=== PATIENT | male | born 1950 | race Caucasian/White ===

== ENCOUNTER 2025-08-11 23:00 | Observation (INO) | payer MEDICARE ==
--- NOTE | 2025-08-11 23:12 | ERPHSYRPT ---
- History of Present Illness Time Seen by Provider: 08/11/25 23:11 Source: patient, family Exam Limitations: clinical condition Physician History: This is a 75-year-old white male patient arrives by private vehicle accompanied by spouse and is a patient of Dr. Ruvalcaba. In the last couple of days this diabetic patient with hypertension has not been eating or drinking well per the patient's spouse report. His symptoms of mild confusion have worsened and today, the spouse stated that she could not control his confusion. There is been no new medications. Patient denies shortness of breath and he denies chest pain. He has never been in our emergency department before. Patient had been complaining of headaches and bodyaches over the last couple of days. He does see bit gatherer Dr. Gunderson. He arrives to the emergency department mildly pale and diaphoretic. Patient underwent viral swabs this morning and they were negative. 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 Associated Symptoms: confusion, diaphoresis, headache, muscle aches, weakness, No shortness of breath Allergies/Adverse Reactions: No Known Drug Allergies Allergy (Verified 08/11/25 23:06) Home Medications: Carvedilol 3.125 mg [Coreg 3.125 MG] 3.125 mg PO BID 08/11/25 [History] Insulin Degludec [Tresiba Flextouch U-100] 10 unit SQ HS 08/11/25 [History] Insulin Lispro [Insulin Lispro Kwikpen U-100] 5 unit SQ TID 08/11/25 [History] Lisinopril 5 mg [Zestril 5 MG] 2.5 mg PO DAILY 08/11/25 [History] Metformin HCl 500 mg [Glucophage 500 MG] 1,000 mg PO BID 08/11/25 [History] ondansetron HCL [Ondansetron HCl] 8 mg PO BID PRN 08/11/25 [History] Travel Risk - International Travel Have you traveled outside of the country in past 3 weeks: No - Emerging Infectious Disease Are you exhibiting symptoms associated with any current EIDs: No Symptoms: Fever, Headaches/Body Aches/ - Review of Systems Constitutional: Fever (At home), Weakness Eyes: No Symptoms Ears, Nose, & Throat: No Symptoms Respiratory: No Symptoms Cardiac: No Symptoms Abdominal/Gastrointestinal: Vomiting, Appetite Changes Genitourinary Symptoms: No Symptoms Musculoskeletal: No Symptoms Neurological: Headache Psychological: No Symptoms Endocrine: No Symptoms Hematologic/Lymphatic: No Symptoms Immunological/Allergic: No Symptoms All Other Systems: Reviewed and Negative - Past Medical History Pertinent Past Medical History: Yes - Nursing Vital Signs Nursing Vital Signs: Initial Vital Signs Pulse Rate 69 08/11/25 23:05 Respiratory Rate 20 08/11/25 23:05 Blood Pressure 170/92 08/11/25 23:05 O2 Sat by Pulse Oximetry 96 08/11/25 23:05 Pain Scale Pain Intensity 0 - Physical Exam General Appearance: mild distress, alert, anxiety, thin Eye Exam: PERRL/EOMI, eyes nml inspection ENT Exam: normal ENT inspection Neck Exam: normal inspection, non-tender, supple, full range of motion, trachea midline Respiratory Exam: normal breath sounds, chest non-tender, lungs clear, no respiratory distress, no accessory muscle use, decreased breath sounds, respiratory distress Cardiovascular/Chest Exam: normal heart sounds, regular rate/rhythm Gastrointestinal/Abdominal Exam: soft, non tender, no distention, no mass, no guarding, no ecchymosis, no organomegaly, no pulsatile mass, normal bowel sounds Rectal Exam: not done Extremity Exam: non-tender, normal range of motion, normal inspection, normal capillary refill, no calf tenderness, no pedal edema, pelvis stable, calf tenderness Neurologic Exam: cooperative, cancer genetic counselor II-XII nml as tested, confusion Skin Exam: diaphoresis, pale Lymphatic: No adenopathy SpO2 Interpretation: normal O2 Delivery: Room Air - Course Nursing assessment & vital signs reviewed: Yes EKG Interpreted by Me: RATE (75), Sinus Rhythm, NORMAL AXIS, NORMAL INTERVALS, Right Bundle Branch Block, Other (QTc 447. No acute ischemia.) Ordered Tests: Active Orders 24 hr Category Date Time Status Telephone Exchange Operator STAT Care 08/11/25 23:28 Active EKG-ER Only STAT Care 08/11/25 23:27 Active IV Insertion STAT Care 08/11/25 23:27 Active NPO (ED) STAT Care 08/11/25 23:32 Active POCT Glucose Check STAT Care 08/11/25 23:32 Active Pulse Oximetry (ED) STAT Care 08/11/25 23:27 Active BLOOD CULTURE Stat Lab 08/11/25 23:52 Received CBC W DIFF Stat Lab 08/11/25 23:34 Completed CMP Stat Lab 08/11/25 23:36 Completed Lactic Acid Stat Lab 08/11/25 23:27 Completed MAGNESIUM Stat Lab 08/11/25 23:36 Completed MONO SCREEN Stat Lab 08/11/25 23:34 Completed NT PRO BNPII Stat Lab 08/11/25 23:34 Completed TROPONIN Q4H Lab 08/11/25 23:34 Completed TROPONIN Q4H Lab 08/12/25 03:30 Ordered TROPONIN Q4H Lab 08/12/25 07:30 Ordered UA W/RFX UR CULTURE Stat Lab 08/12/25 00:54 Completed Medication Summary Generic Name Dose Route Start Last Admin Trade Name Freq PRN Reason Stop Dose Admin Sodium Chloride 1,000 mls @ 999 mls/hr 08/12/25 01:27 08/12/25 01:30 Sodium Chloride 0.9% 1000 Ml IV 08/12/25 02:27 999 mls/hr .Q1H1M STA Administration Discontinued Medications Generic Name Dose Route Start Last Admin Trade Name Freq PRN Reason Stop Dose Admin Droperidol 0.625 mg 08/12/25 00:46 08/12/25 00:52 Droperidol 5 Mg/2 Ml Vial IV 08/12/25 00:47 0.625 mg STAT ONE Administration Droperidol Confirm 08/12/25 00:48 Droperidol 5 Mg/2 Ml Vial Administered 08/12/25 00:49 Dose 5 mg .ROUTE .STK-MED ONE Sodium Chloride 1,000 mls @ 999 mls/hr 08/11/25 23:27 08/12/25 00:52 Sodium Chloride 0.9% 1000 Ml IV 08/12/25 00:27 Infused .Q1H1M STA Infusion Sodium Chloride Confirm 08/11/25 23:50 Sodium Chloride 0.9% 1000 Ml Administered 08/11/25 23:51 Dose 1,000 mls @ ud .ROUTE .STK-MED ONE Sodium Chloride Confirm 08/12/25 01:29 Sodium Chloride 0.9% 1000 Ml Administered 08/12/25 01:30 Dose 1,000 mls @ ud .ROUTE .STK-MED ONE Ondansetron HCl 4 mg 08/11/25 23:27 08/11/25 23:52 Ondansetron Hcl 4 Mg/2 Ml Vial IV 08/11/25 23:28 4 mg STAT ONE Administration Ondansetron HCl Confirm 08/11/25 23:50 Ondansetron Hcl 4 Mg/2 Ml Vial Administered 08/11/25 23:51 Dose 4 mg .ROUTE .STK-MED ONE Pantoprazole Sodium 40 mg 08/12/25 00:45 08/12/25 00:52 Pantoprazole 40 Mg Vial IV 08/12/25 00:46 40 mg STAT ONE Administration Pantoprazole Sodium Confirm 08/12/25 00:48 Pantoprazole 40 Mg Vial Administered 08/12/25 00:49 Dose 40 mg IV .STK-MED ONE Lab/Rad Data: Laboratory Result Diagrams 08/11/25 23:34 08/11/25 23:36 Laboratory Results 08/12/25 08/12/25 08/11/25 Range/Units 00:54 00:04 23:52 WBC (4.23-9.07) x10^3/uL RBC (4.63-6.08) x10^6/uL Hgb (13.7-17.5) g/dL Hct (40.1-51.0) % MCV (79.0-92.2) fL MCH (25.7-32.2) pg MCHC (32.3-36.5) g/dL RDW (11.6-14.4) % Plt Count (163-337) x10^3/uL MPV (9.4-12.4) fL Gran % (34.0-67.9) % Immature Gran % (Auto) (0.001-0.429) % Nucleat RBC Rel Count (0.00-0.2) % Eos # (Auto) (0.04-0.54) x10^3/uL Immature Gran # (Auto) (0.001-0.031) x10^3u/L Absolute Lymphs (auto) (1.32-3.57) x10^3/uL Absolute Monos (auto) (0.30-0.82) x10^3/uL Absolute Nucleated RBC (0.00-0.012) x10^3u/L Lymphocytes % (21.8-53.1) % Monocytes % (5.3-12.2) % Eosinophils % (0.8-7.0) % Basophils % (0.2-1.2) % Absolute Granulocytes (1.78-5.38) x10^3/uL Basophils # (0.01-0.08) x10^3/uL Sodium (135-145) mmol/L Potassium (3.5-5.1) mmol/L Chloride (98-107) mmol/L Carbon Dioxide (22-30) mmol/L Anion Gap (5-15) MEQ/L BUN (9-20) mg/dL Creatinine (0.66-1.25) mg/dL Estimated GFR ML/MIN Glucose (74-106) mg/dL Lactic Acid 2.6 H (0.4-2.0) Calcium (8.4-10.2) mg/dL Magnesium (1.6-2.3) mg/dL Total Bilirubin (0.2-1.3) mg/dL AST (17-59) U/L ALT (0-50) U/L Alkaline Phosphatase (38-126) U/L Ammonia < 9 L (9-30) umol/L Troponin I (0.000-0.033) ng/mL NT-Pro-B Natriuret Pep (<300) pg/mL Serum Total Protein (6.3-8.2) g/dL Albumin (3.5-5.0) g/dL Urine Color Yellow (Yellow) Urine Appearance Clear (Clear) Urine pH 6.0 (4.6-8.0) Ur Specific [place] 1.025 (1.005-1.030) Urine Protein Trace A (Negative) Urine Glucose (UA) Negative (Negative) mg/dL Urine Ketones 15 A (Negative) Urine Blood Negative (Negative) Urine Nitrite Negative (Negative) Urine Bilirubin Negative (Negative) Urine Urobilinogen 1.0 A (0.2) mg/dL Ur Leukocyte Esterase Negative (Negative) U Hyaline Cast (Auto) NONE SEEN (0-2) /LPF Urine Microscopic RBC 0-2 (0-5) /HPF Urine Microscopic WBC 0-2 (0-5) /HPF Ur Epithelial Cells None Seen (None Seen) /HPF Urine Bacteria None Seen (None Seen) /HPF Urine Culture Reflexed NO (NO) Monoscreen (NEGATIVE) Group A Strep Antibody (NEGATIVE) 08/11/25 08/11/25 08/11/25 Range/Units 23:52 23:36 23:34 WBC (4.23-9.07) x10^3/uL RBC (4.63-6.08) x10^6/uL Hgb (13.7-17.5) g/dL Hct (40.1-51.0) % MCV (79.0-92.2) fL MCH (25.7-32.2) pg MCHC (32.3-36.5) g/dL RDW (11.6-14.4) % Plt Count (163-337) x10^3/uL MPV (9.4-12.4) fL Gran % (34.0-67.9) % Immature Gran % (Auto) (0.001-0.429) % Nucleat RBC Rel Count (0.00-0.2) % Eos # (Auto) (0.04-0.54) x10^3/uL Immature Gran # (Auto) (0.001-0.031) x10^3u/L Absolute Lymphs (auto) (1.32-3.57) x10^3/uL Absolute Monos (auto) (0.30-0.82) x10^3/uL Absolute Nucleated RBC (0.00-0.012) x10^3u/L Lymphocytes % (21.8-53.1) % Monocytes % (5.3-12.2) % Eosinophils % (0.8-7.0) % Basophils % (0.2-1.2) % Absolute Granulocytes (1.78-5.38) x10^3/uL Basophils # (0.01-0.08) x10^3/uL Sodium 134 L (135-145) mmol/L Potassium 4.2 (3.5-5.1) mmol/L Chloride 98 (98-107) mmol/L Carbon Dioxide 25 (22-30) mmol/L Anion Gap 15.3 H (5-15) MEQ/L BUN 25 H (9-20) mg/dL Creatinine 0.76 (0.66-1.25) mg/dL Estimated GFR 94.3 ML/MIN Glucose 181 H (74-106) mg/dL Lactic Acid (0.4-2.0) Calcium 9.4 (8.4-10.2) mg/dL Magnesium 1.8 (1.6-2.3) mg/dL Total Bilirubin 0.90 (0.2-1.3) mg/dL AST 31 (17-59) U/L ALT 26 (0-50) U/L Alkaline Phosphatase 61 (38-126) U/L Ammonia (9-30) umol/L Troponin I (0.000-0.033) ng/mL NT-Pro-B Natriuret Pep (<300) pg/mL Serum Total Protein 8.1 (6.3-8.2) g/dL Albumin 4.9 (3.5-5.0) g/dL Urine Color (Yellow) Urine Appearance (Clear) Urine pH (4.6-8.0) Ur Specific [place] (1.005-1.030) Urine Protein (Negative) Urine Glucose (UA) (Negative) mg/dL Urine Ketones (Negative) Urine Blood (Negative) Urine Nitrite (Negative) Urine Bilirubin (Negative) Urine Urobilinogen (0.2) mg/dL Ur Leukocyte Esterase (Negative) U Hyaline Cast (Auto) (0-2) /LPF Urine Microscopic RBC (0-5) /HPF Urine Microscopic WBC (0-5) /HPF Ur Epithelial Cells (None Seen) /HPF Urine Bacteria (None Seen) /HPF Urine Culture Reflexed (NO) Monoscreen POSITIVE (NEGATIVE) Group A Strep Antibody NOT DETECTED (NEGATIVE) 08/11/25 08/11/25 Range/Units 23:34 23:34 WBC 4.3 (4.23-9.07) x10^3/uL RBC 4.57 L (4.63-6.08) x10^6/uL Hgb 13.2 L (13.7-17.5) g/dL Hct 39.0 L (40.1-51.0) % MCV 85.3 (79.0-92.2) fL MCH 28.9 (25.7-32.2) pg MCHC 33.8 (32.3-36.5) g/dL RDW 12.6 (11.6-14.4) % Plt Count 196 (163-337) x10^3/uL MPV 10.7 (9.4-12.4) fL Gran % 74.8 H (34.0-67.9) % Immature Gran % (Auto) 0.2 (0.001-0.429) % Nucleat RBC Rel Count 0.0 (0.00-0.2) % Eos # (Auto) 0 L (0.04-0.54) x10^3/uL Immature Gran # (Auto) 0.01 (0.001-0.031) x10^3u/L Absolute Lymphs (auto) 0.71 L (1.32-3.57) x10^3/uL Absolute Monos (auto) 0.35 (0.30-0.82) x10^3/uL Absolute Nucleated RBC 0.00 (0.00-0.012) x10^3u/L Lymphocytes % 16.4 L (21.8-53.1) % Monocytes % 8.1 (5.3-12.2) % Eosinophils % 0.0 L (0.8-7.0) % Basophils % 0.5 (0.2-1.2) % Absolute Granulocytes 3.24 (1.78-5.38) x10^3/uL Basophils # 0.02 (0.01-0.08) x10^3/uL Sodium (135-145) mmol/L Potassium (3.5-5.1) mmol/L Chloride (98-107) mmol/L Carbon Dioxide (22-30) mmol/L Anion Gap (5-15) MEQ/L BUN (9-20) mg/dL Creatinine (0.66-1.25) mg/dL Estimated GFR ML/MIN Glucose (74-106) mg/dL Lactic Acid (0.4-2.0) Calcium (8.4-10.2) mg/dL Magnesium (1.6-2.3) mg/dL Total Bilirubin (0.2-1.3) mg/dL AST (17-59) U/L ALT (0-50) U/L Alkaline Phosphatase (38-126) U/L Ammonia (9-30) umol/L Troponin I < 0.012 (0.000-0.033) ng/mL NT-Pro-B Natriuret Pep 229 (<300) pg/mL Serum Total Protein (6.3-8.2) g/dL Albumin (3.5-5.0) g/dL Urine Color (Yellow) Urine Appearance (Clear) Urine pH (4.6-8.0) Ur Specific [place] (1.005-1.030) Urine Protein (Negative) Urine Glucose (UA) (Negative) mg/dL Urine Ketones (Negative) Urine Blood (Negative) Urine Nitrite (Negative) Urine Bilirubin (Negative) Urine Urobilinogen (0.2) mg/dL Ur Leukocyte Esterase (Negative) U Hyaline Cast (Auto) (0-2) /LPF Urine Microscopic RBC (0-5) /HPF Urine Microscopic WBC (0-5) /HPF Ur Epithelial Cells (None Seen) /HPF Urine Bacteria (None Seen) /HPF Urine Culture Reflexed (NO) Monoscreen (NEGATIVE) Group A Strep Antibody (NEGATIVE) - Progress Progress: improved, re-examined Progress Note: 08/11/25 23:49 My medical decision making and the assignment of high complexity to this patient's medical issue today is based on review of the patient's past medical history, reviewed the patient's medication list, reviewed patient drug allergy list, history present of some physical findings on examination. The workup in this patient includes placement of intravenous line, infusion of Normal Saline solution, twelve-lead EKG, urinalysis, magnesium level, twelve-lead EKG, CBC, CMP, monotest, group A strep test, ammonia level, CT scan of the head without contrast. Differential diagnosis includes but is not limited to acute intracranial abnormality, electrolyte abnormalities, urinary tract infection, dehydration, arrhythmia, myocardial infarction, DKA, elevated ammonia level 08/12/25 02:02 I interpreted the patient's laboratory data results. Based on laboratory data results I see no acute, emergent medical issue. CT scan of the head without contrast was interpreted by the radiologist and I reviewed the impression. The impression states no evidence of acute intracranial abnormality. There is cerebral atrophy. There are chronic microvascular changes. The preliminary chest x-ray report was interpreted by me. There is no evidence of acute cardiopulmonary process. There does appear to be cardiomegaly. 08/12/25 02:[address] Liz, the telehospitalist at this time. I reviewed the patient past medical history, presenting complaint, physical findings on examination and results of our workup. We will place him in observation and provided with IV hydration, antiemetics and sliding scale insulin coverage. We will also repeat labs. Counseled pt/family regarding: lab results, diagnosis, rad results - Departure Departure Disposition: Observation Clinical Impression: Vomiting, Confusion, Mononucleosis, Retching, Dehydration Condition: Fair Critical Care Time: No Referrals: JOVANNY RUVALCABA MD [Primary Care Provider, [facility]] - Follow up/PCP as directed
[2025-08-11 23:39] LABS: BASOPHIL % 0.5 % (0.2-1.2); Basophil (Absolute #) 0.02 x10^3/uL (0.01-0.08); Eosinophil (Absolute #) 0 x10^3/uL (0.04-0.54); Hematocrit 39.0 % (40.1-51.0); Hemoglobin 13.2 g/dL (13.7-17.5); IMMATURE GRAN # 0.01 x10^3u/L (0.001-0.031); IMMATURE GRAN % 0.2 % (0.001-0.429); Lymphocyte (Absolute #) 0.71 x10^3/uL (1.32-3.57); Mean Corpuscular Hemoglobin 28.9 pg (25.7-32.2); Mean Corpuscular Hgb Concent. 33.8 g/dL (32.3-36.5); Monocyte (Absolute #) 0.35 x10^3/uL (0.30-0.82); NUCLEATED RBC # 0.00 x10^3u/L (0.00-0.012); NUCLEATED RBC % 0.0 % (0.00-0.2); Platelet Count 196 x10^3/uL (163-337); Red Blood Count 4.57 x10^6/uL (4.63-6.08); White Blood Count 4.3 x10^3/uL (4.23-9.07)
[2025-08-11 23:46] LABS: Calcium 9.4 mg/dL (8.4-10.2); Carbon Dioxide 25.0 mmol/L (22-30); Creatinine 1 0.76 mg/dL (0.66-1.25); EST GLOMERULAR FILTRATION RATE 94.3 ML/MIN; Glucose 181.0 mg/dL (74-106); Potassium 4.2 mmol/L (3.5-5.1); SGOT/AST 31.0 U/L (17-59); SGPT/ALT 26.0 U/L (0-50); Total Protein 8.1 g/dL (6.3-8.2)
[2025-08-11] MEDS ORDERED: Zofran 4 MG/2 ML VIAL ONE (23:50)
[2025-08-11] MEDS: Zofran 4 MG/2 ML VIAL IV ONE (23:52)
[2025-08-11 23:57] LABS: NT PRO BNPII 229 pg/mL (<300); TROPONIN < 0.012 ng/mL (0.000-0.033)
[2025-08-12] MEDS ORDERED: PROTONIX 40 MG IV IV ONE (00:48)
[2025-08-12] MEDS ORDERED: Inapsine 5 MG/2 ML ONE (00:48)
[2025-08-12] MEDS: PROTONIX 40 MG IV IV ONE (00:52)
[2025-08-12] MEDS: Inapsine 5 MG/2 ML IV ONE (00:52)
--- NOTE | 2025-08-12 00:53 | XRAY ---
CLINICAL HISTORY: Altered mental status COMPARISON: None. TECHNIQUE: Multiple axial images were obtained from the skull base to the vertex without contrast. The CT scan was performed according to ALARA (as low as reasonably achievable) principles. FINDINGS: There is cerebral atrophy. No evidence of space-occupying lesion, hemorrhage, edema, mass effect, midline shift, extra-axial collection, or hydrocephalus is noted. Basal cisterns are symmetric and normal in size and configuration. There are scattered periventricular hypodensities, as can be seen with chronic microvascular ischemic changes. The orosco-white matter differentiation is preserved. The visualized paranasal sinuses and mastoid air cells are well aerated. Orbital contents are within normal limits. Bony structures are intact. IMPRESSION: 1. No evidence of acute intracranial abnormality is demonstrated. 2. Chronic microvascular ischemic changes. 3. Cerebral atrophy. Electronically Signed by: Андрей Awad MD. (08/12/2025 00:52:05 EDT)
[2025-08-12 01:18] LABS: Glucose, Urine Negative (Negative); Protein,Urine Dip Trace (Negative); RBC 0-2 /HPF (0-5); WBC 0-2 /HPF (0-5)
[2025-08-12] MEDS ORDERED: HUMULIN R SQ PRN (02:59)
--- NOTE | 2025-08-12 04:12 | PCM.HP ---
History of Present Illness - Chief Complaint Chief Complaint: Mononucleosis Date: 08/12/25 History of Present Illness: The patient is a 75-year-old male with a PMH of type II DM and hypertension who presents to the emergency room accompanied by his with complaints of nausea, vomiting, and confusion. The history is largely provided by the patient's as the patient was sleepy at the time of interview. She notes that the patient's symptoms initially started this past Friday when he started to feel somewhat ill and had a decreased appetite. He subsequently developed low-grade fevers at home, a mild cough productive of brown phlegm, malaise, accompanied by nausea with vomiting. His symptoms gradually progressed which prompted the to urge him to come to the emergency department. The patient reportedly had persistent vomiting and has been unable to eat or drink much over the past 2 days. She notes that throughout the day today, he had minimal energy and was unable to ambulate to the bathroom. The highest documented temperature at home 100.0 F. She reports that he was also confused throughout the day today, which is unusual for him. He however did not complain of chest discomfort, shortness of breath, headaches, urinary complaints to her. At time of interview, the patient reports that he feels tired but denied any additional complaints. In the emergency department, the patient underwent an extensive evaluation which was all reviewed with CT brain that revealed chronic changes with no acute abnormalities noted. Chest x-ray was also independently interpreted and revealed no obvious acute abnormalities. Laboratory evaluation revealed a hemoglobin of 13.2, platelet count 196, sodium 134, BUN 25, creatinine 0.76, glucose 181, lactic acid 2.6, troponin less than 0.012, UA unremarkable, with a monoscreen positive. The case was discussed with the ER provider in detail and chart was reviewed. Review of Systems: A complete and thorough review of system was performed and was negative except as stated in the HPI. Physical Examination: General: Well-nourished, in no acute distress. Normal weight. HEENT: Head atruamatic normocephaic, PERRL, no scleral icterus, no oral lesions, no tender lymphadenopathy of the neck appreciated Cardiovascular: Regular rate and rhythm, S1S2 normal, no murmurs appreciated Respiratory: Clear to auscultation bilaterally, no wheezes, rales, rhonchi Abdomen: Soft, nontender, nondistended, normoactive bowel sounds, no guarding Musculoskeletal: Full range of motion. No obvious swelling or tenderness noted Neurological: Sleepy, although answering questions appropriately and oriented x 3. Strength 5/5 in all extremities grossly, no obvious focal deficits noted Psychiatric: Sleepy, normal judgment with intact thought process Assessment & Plan Intractable nausea and vomiting, likely secondary to viral URI - Continue with IV fluids with normal saline 100 mL/h - Fall precautions - Antiemetics with Zofran 4 mg every 6 hours as needed - PT consult - Clear liquid diet Hyponatremia, mild - Monitor BMP Chronic conditions: Type II DM, hypertension - Resume home meds - Insulin sliding scale and blood glucose monitoring DVT prophylaxis: Lovenox subcu CODE STATUS: Full code Medications & Allergies Home Medications: Home Medication List Carvedilol 3.125 mg [Coreg 3.125 MG] 3.125 mg PO BID 08/11/25 [History Confirmed 08/11/25] Insulin Degludec [Tresiba Flextouch U-100] 10 unit SQ HS 08/11/25 [History Confirmed 08/11/25] Insulin Lispro [Insulin Lispro Kwikpen U-100] 5 unit SQ TID 08/11/25 [History Confirmed 08/11/25] Lisinopril 5 mg [Zestril 5 MG] 2.5 mg PO DAILY 08/11/25 [History Confirmed 08/11/25] Metformin HCl 500 mg [Glucophage 500 MG] 1,000 mg PO BID 08/11/25 [History Confirmed 08/11/25] ondansetron HCL [Ondansetron HCl] 8 mg PO BID PRN 08/11/25 [History Confirmed 08/11/25] Allergies/Adverse Reactions: Allergies Allergy/AdvReac Type Severity Reaction Status Date / Time No Known Drug Allergies Allergy Verified 08/11/25 23:06 - Past Medical History Past Medical History: Yes Neurological History: No Pertinent History ENT History: No Pertinent History Cardiac History: Hypertension Respiratory History: No Pertinent History Endocrine Medical History: Diabetes Type II Musculoskelatal History: No Pertinent History GI Medical History: No Pertinent History History: No Pertinent History Pyscho-Social History: No Pertinent History Male Reproductive Disorders: No Pertinent History - Past Surgical History Past Surgical History: No Neuro Surgical History: No Pertinent History Cardiac History: No Pertinent History Respiratory Surgery: No Pertinent History GI Surgical History: No Pertinent History Genitourinary Surgical Hx: No Pertinent History Musculskeletal Surgical Hx: No Pertinent History Male Surgical History: No Pertinent History - Social History Smoking Status: Never smoker Exposure to second hand smoke: No Alcohol: None Drug Use: none - Social Determinants of Health Will the patient participate in the screening: Yes Do you worry about a steady place to live?: No Do you have any problems with any of the following?: No known problems In the past 12 months,have you had to go without utilities?: No Have you or anyone in your house had to go without enough: No Transportation Issues: No Has anyone in your support network made you feel unsafe?: No - Physical Exam Vital Signs: Vital Signs - 24 hr Temp Pulse Resp BP BP Pulse Ox 08/12/25 02:00 70 29 H 171/87 98 08/12/25 01:30 67 26 H 158/114 97 08/12/25 01:00 69 28 H 163/81 93 L 08/12/25 00:30 98.6 F 67 16 143/101 95 08/12/25 00:29 70 13 08/12/25 00:20 96 08/12/25 00:18 97 08/11/25 23:43 96 08/11/25 23:30 70 21 183/96 96 08/11/25 23:11 98.9 F 73 18 170/92 97 08/11/25 23:05 69 20 170/92 96 Results - Labs Lab/Micro Results: Lab Results-Last 24 Hours 08/11/25 08/11/25 08/11/25 Range/Units 23:34 23:34 23:34 WBC 4.3 (4.23-9.07) x10^3/uL RBC 4.57 L (4.63-6.08) x10^6/uL Hgb 13.2 L (13.7-17.5) g/dL Hct 39.0 L (40.1-51.0) % MCV 85.3 (79.0-92.2) fL MCH 28.9 (25.7-32.2) pg MCHC 33.8 (32.3-36.5) g/dL RDW 12.6 (11.6-14.4) % Plt Count 196 (163-337) x10^3/uL MPV 10.7 (9.4-12.4) fL Gran % 74.8 H (34.0-67.9) % Immature Gran % (Auto) 0.2 (0.001-0.429) % Nucleat RBC Rel Count 0.0 (0.00-0.2) % Eos # (Auto) 0 L (0.04-0.54) x10^3/uL Immature Gran # (Auto) 0.01 (0.001-0.031) x10^3u/L Absolute Lymphs (auto) 0.71 L (1.32-3.57) x10^3/uL Absolute Monos (auto) 0.35 (0.30-0.82) x10^3/uL Absolute Nucleated RBC 0.00 (0.00-0.012) x10^3u/L Lymphocytes % 16.4 L (21.8-53.1) % Monocytes % 8.1 (5.3-12.2) % Eosinophils % 0.0 L (0.8-7.0) % Basophils % 0.5 (0.2-1.2) % Absolute Granulocytes 3.24 (1.78-5.38) x10^3/uL Basophils # 0.02 (0.01-0.08) x10^3/uL Sodium (135-145) mmol/L Potassium (3.5-5.1) mmol/L Chloride (98-107) mmol/L Carbon Dioxide (22-30) mmol/L Anion Gap (5-15) MEQ/L BUN (9-20) mg/dL Creatinine (0.66-1.25) mg/dL Estimated GFR ML/MIN Glucose (74-106) mg/dL Lactic Acid (0.4-2.0) Calcium (8.4-10.2) mg/dL Magnesium (1.6-2.3) mg/dL Total Bilirubin (0.2-1.3) mg/dL AST (17-59) U/L ALT (0-50) U/L Alkaline Phosphatase (38-126) U/L Ammonia (9-30) umol/L Troponin I < 0.012 (0.000-0.033) ng/mL NT-Pro-B Natriuret Pep 229 (<300) pg/mL Serum Total Protein (6.3-8.2) g/dL Albumin (3.5-5.0) g/dL Urine Color (Yellow) Urine Appearance (Clear) Urine pH (4.6-8.0) Ur Specific [place] (1.005-1.030) Urine Protein (Negative) Urine Glucose (UA) (Negative) mg/dL Urine Ketones (Negative) Urine Blood (Negative) Urine Nitrite (Negative) Urine Bilirubin (Negative) Urine Urobilinogen (0.2) mg/dL Ur Leukocyte Esterase (Negative) U Hyaline Cast (Auto) (0-2) /LPF Urine Microscopic RBC (0-5) /HPF Urine Microscopic WBC (0-5) /HPF Ur Epithelial Cells (None Seen) /HPF Urine Bacteria (None Seen) /HPF Urine Culture Reflexed (NO) Monoscreen POSITIVE (NEGATIVE) Group A Strep Antibody (NEGATIVE) 08/11/25 08/11/25 08/11/25 Range/Units 23:36 23:52 23:52 WBC (4.23-9.07) x10^3/uL RBC (4.63-6.08) x10^6/uL Hgb (13.7-17.5) g/dL Hct (40.1-51.0) % MCV (79.0-92.2) fL MCH (25.7-32.2) pg MCHC (32.3-36.5) g/dL RDW (11.6-14.4) % Plt Count (163-337) x10^3/uL MPV (9.4-12.4) fL Gran % (34.0-67.9) % Immature Gran % (Auto) (0.001-0.429) % Nucleat RBC Rel Count (0.00-0.2) % Eos # (Auto) (0.04-0.54) x10^3/uL Immature Gran # (Auto) (0.001-0.031) x10^3u/L Absolute Lymphs (auto) (1.32-3.57) x10^3/uL Absolute Monos (auto) (0.30-0.82) x10^3/uL Absolute Nucleated RBC (0.00-0.012) x10^3u/L Lymphocytes % (21.8-53.1) % Monocytes % (5.3-12.2) % Eosinophils % (0.8-7.0) % Basophils % (0.2-1.2) % Absolute Granulocytes (1.78-5.38) x10^3/uL Basophils # (0.01-0.08) x10^3/uL Sodium 134 L (135-145) mmol/L Potassium 4.2 (3.5-5.1) mmol/L Chloride 98 (98-107) mmol/L Carbon Dioxide 25 (22-30) mmol/L Anion Gap 15.3 H (5-15) MEQ/L BUN 25 H (9-20) mg/dL Creatinine 0.76 (0.66-1.25) mg/dL Estimated GFR 94.3 ML/MIN Glucose 181 H (74-106) mg/dL Lactic Acid (0.4-2.0) Calcium 9.4 (8.4-10.2) mg/dL Magnesium 1.8 (1.6-2.3) mg/dL Total Bilirubin 0.90 (0.2-1.3) mg/dL AST 31 (17-59) U/L ALT 26 (0-50) U/L Alkaline Phosphatase 61 (38-126) U/L Ammonia < 9 L (9-30) umol/L Troponin I (0.000-0.033) ng/mL NT-Pro-B Natriuret Pep (<300) pg/mL Serum Total Protein 8.1 (6.3-8.2) g/dL Albumin 4.9 (3.5-5.0) g/dL Urine Color (Yellow) Urine Appearance (Clear) Urine pH (4.6-8.0) Ur Specific [place] (1.005-1.030) Urine Protein (Negative) Urine Glucose (UA) (Negative) mg/dL Urine Ketones (Negative) Urine Blood (Negative) Urine Nitrite (Negative) Urine Bilirubin (Negative) Urine Urobilinogen (0.2) mg/dL Ur Leukocyte Esterase (Negative) U Hyaline Cast (Auto) (0-2) /LPF Urine Microscopic RBC (0-5) /HPF Urine Microscopic WBC (0-5) /HPF Ur Epithelial Cells (None Seen) /HPF Urine Bacteria (None Seen) /HPF Urine Culture Reflexed (NO) Monoscreen (NEGATIVE) Group A Strep Antibody NOT DETECTED (NEGATIVE) 08/12/25 08/12/25 Range/Units 00:04 00:54 WBC (4.23-9.07) x10^3/uL RBC (4.63-6.08) x10^6/uL Hgb (13.7-17.5) g/dL Hct (40.1-51.0) % MCV (79.0-92.2) fL MCH (25.7-32.2) pg MCHC (32.3-36.5) g/dL RDW (11.6-14.4) % Plt Count (163-337) x10^3/uL MPV (9.4-12.4) fL Gran % (34.0-67.9) % Immature Gran % (Auto) (0.001-0.429) % Nucleat RBC Rel Count (0.00-0.2) % Eos # (Auto) (0.04-0.54) x10^3/uL Immature Gran # (Auto) (0.001-0.031) x10^3u/L Absolute Lymphs (auto) (1.32-3.57) x10^3/uL Absolute Monos (auto) (0.30-0.82) x10^3/uL Absolute Nucleated RBC (0.00-0.012) x10^3u/L Lymphocytes % (21.8-53.1) % Monocytes % (5.3-12.2) % Eosinophils % (0.8-7.0) % Basophils % (0.2-1.2) % Absolute Granulocytes (1.78-5.38) x10^3/uL Basophils # (0.01-0.08) x10^3/uL Sodium (135-145) mmol/L Potassium (3.5-5.1) mmol/L Chloride (98-107) mmol/L Carbon Dioxide (22-30) mmol/L Anion Gap (5-15) MEQ/L BUN (9-20) mg/dL Creatinine (0.66-1.25) mg/dL Estimated GFR ML/MIN Glucose (74-106) mg/dL Lactic Acid 2.6 H (0.4-2.0) Calcium (8.4-10.2) mg/dL Magnesium (1.6-2.3) mg/dL Total Bilirubin (0.2-1.3) mg/dL AST (17-59) U/L ALT (0-50) U/L Alkaline Phosphatase (38-126) U/L Ammonia (9-30) umol/L Troponin I (0.000-0.033) ng/mL NT-Pro-B Natriuret Pep (<300) pg/mL Serum Total Protein (6.3-8.2) g/dL Albumin (3.5-5.0) g/dL Urine Color Yellow (Yellow) Urine Appearance Clear (Clear) Urine pH 6.0 (4.6-8.0) Ur Specific [place] 1.025 (1.005-1.030) Urine Protein Trace A (Negative) Urine Glucose (UA) Negative (Negative) mg/dL Urine Ketones 15 A (Negative) Urine Blood Negative (Negative) Urine Nitrite Negative (Negative) Urine Bilirubin Negative (Negative) Urine Urobilinogen 1.0 A (0.2) mg/dL Ur Leukocyte Esterase Negative (Negative) U Hyaline Cast (Auto) NONE SEEN (0-2) /LPF Urine Microscopic RBC 0-2 (0-5) /HPF Urine Microscopic WBC 0-2 (0-5) /HPF Ur Epithelial Cells None Seen (None Seen) /HPF Urine Bacteria None Seen (None Seen) /HPF Urine Culture Reflexed NO (NO) Monoscreen (NEGATIVE) Group A Strep Antibody (NEGATIVE) Accuchecks Date 08/11/25 Time 23:55 - Radiology Impressions Radiology Exams & Impressions: Radiology Procedures Category Date Time Status CHEST 1 VIEW (PORTABLE) Stat Exams 08/11/25 00:11 Taken HEAD WITHOUT CONTRAST [CT] Stat Exams 08/11/25 00:12 Completed Telemedicine Encounter - Telemedicine Encounter Telemedicine Encounter: "The entirety of this encounter was performed via Telemedicine" This visit was performed using real-time audio and video connection between my location and thepatients locationwith the assistance of a surrogateat the patients location. Written or verbal consent was obtained from the pat ient/guardian to perform this visit using[employer]medicine technology. Any patient questions regarding the telemedicine interaction were answered.
[2025-08-12 04:34] LABS: BASOPHIL % 0.2 % (0.2-1.2); Basophil (Absolute #) 0.01 x10^3/uL (0.01-0.08); Eosinophil (Absolute #) 0 x10^3/uL (0.04-0.54); Hematocrit 36.7 % (40.1-51.0); Hemoglobin 12.2 g/dL (13.7-17.5); IMMATURE GRAN # 0.02 x10^3u/L (0.001-0.031); IMMATURE GRAN % 0.5 % (0.001-0.429); Lymphocyte (Absolute #) 0.40 x10^3/uL (1.32-3.57); Mean Corpuscular Hemoglobin 28.6 pg (25.7-32.2); Mean Corpuscular Hgb Concent. 33.2 g/dL (32.3-36.5); Monocyte (Absolute #) 0.19 x10^3/uL (0.30-0.82); NUCLEATED RBC # 0.00 x10^3u/L (0.00-0.012); NUCLEATED RBC % 0.0 % (0.00-0.2); Platelet Count 164 x10^3/uL (163-337); Red Blood Count 4.26 x10^6/uL (4.63-6.08); White Blood Count 4.4 x10^3/uL (4.23-9.07)
[2025-08-12 05:00] LABS: Calcium 8.5 mg/dL (8.4-10.2); Carbon Dioxide 24.0 mmol/L (22-30); Creatinine 1 0.62 mg/dL (0.66-1.25); EST GLOMERULAR FILTRATION RATE 100.3 ML/MIN; Glucose 161.0 mg/dL (74-106); NT PRO BNPII 337.0 pg/mL (<300); Potassium 4.0 mmol/L (3.5-5.1); SGOT/AST 24.0 U/L (17-59); SGPT/ALT 21.0 U/L (0-50); Total Protein 7.1 g/dL (6.3-8.2)
[2025-08-12] MEDS: TYLENOL 325 MG PO PRN (05:49)
[2025-08-12 07:13] LABS: Slide Review 1 YES
[2025-08-12 08:04] LABS: INFLUENZA A NEGATIVE (NEGATIVE); INFLUENZA B NEGATIVE (NEGATIVE); RESPIRATORY SYNCTIAL VIRUS NEGATIVE (NEGATIVE); SARS-CoV-2 Xpert Express NEGATIVE (NEGATIVE)
--- NOTE | 2025-08-12 08:56 | XRAY ---
Indication: Short of breath. Comparison: None Portable apical lordotic chest inflated and clear with mild right hemidiaphragm elevation. Heart not enlarged. Bony thorax intact with osteopenia and mild degenerative changes. No acute findings.
--- NOTE | 2025-08-12 09:18 | PCM.NOTE ---
Mr. Jin is a 75-year-old male with past medical history of hernia, type II diabetes, and hypertension who presented on 08/12/25 with confusion, cough, and nausea/vomiting. Per spouse, he developed flu-like symptoms four days prior, including cough, post-tussive nausea/vomiting, and markedly reduced oral intake since last Friday. On 08/11/25, he became increasingly confused, complained of headache, and registered a temperature of 100F, prompting ED evaluation. His reported he was speaking nonsensically but denied facial droop, dysarthria, or focal weakness. On exam today, the patient is lethargic, oriented only to self, and has right upper quadrant tenderness. Vitals remain stable, with no additional emesis overnight. Laboratory studies show normal LFTs, positive mononucleosis screen, negative COVID/flu/RSV, negative urinalysis. CT head is unremarkable. Plan for CT abdomen/pelvis with contrast and MRI brain without contrast for further evaluation.
[2025-08-12] MEDS ORDERED: HUMALOG SQ PRN (09:19)
[2025-08-12] MEDS: HUMULIN R SQ SCH (09:31)
[2025-08-12] MEDS: Zofran 4 MG/2 ML VIAL IV PRN (10:12)
--- NOTE | 2025-08-12 11:06 | XRAY ---
Indication: Abdominal pain. Multiple contiguous axial images obtained through the abdomen and pelvis using 80 cc Isovue 370 contrast. Comparison: None Study is slightly degraded by respiration artifact. Lung bases hyperinflated with minimal bilateral dependent atelectasis. No infiltrate or effusion. Heart borderline enlarged. Small hiatal hernia. Noncontrasted stomach and bowel loops appear nonobstructed. There is mild diffuse scattered colonic fecal debris including rectum. Also scattered descending and sigmoid diverticulosis without diverticulitis. Appendectomy reported. No free fluid/air. Gallbladder is moderately distended and demonstrates a few gallstones in the neck of the gallbladder, largest 1.5 cm. No abnormal biliary distention. Both kidneys enhance and excrete. Remaining liver, pancreas, spleen, adrenal glands, kidneys, ureters, and bladder are unremarkable. Mild scattered aortoiliac calcifications. No AAA or pathologic retroperitoneal lymphadenopathy. Osseous structures intact with osteopenia, minimal/mild degenerative changes throughout thoracolumbar spine, minimal elongated lumbar levoscoliosis centered at L2, tiny multilevel Schmorl nodes, and mild degenerative changes both hips. Also 1.2 x 1.1 x 1.5 cm L3 lytic lesion. Incidental moderate-sized fatty umbilical and small fatty left inguinal hernias. Impression: 1. Respiration artifact. 2. Distended gallbladder with small gallstones in the neck. Sonogram may yield further information. 3. 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 4. Mild diffuse colonic fecal stasis. 5. Chronic findings including hiatal hernia, colonic diverticulosis, arteriosclerotic disease, chronic bony findings, fatty umbilical hernia, and fatty left inguinal hernia.
--- NOTE | 2025-08-12 12:20 | XRAY ---
Indication: Distended gallbladder with gallstones on CT. Gallbladder sonogram performed. Comparison: None Pancreas obscured due to overlying bowel gas. Gallbladder is mildly distended with several small intraluminal gallstones, largest 2 cm. No abnormal gallbladder wall thickening or pericholecystic fluid. Common bile duct measures 5.9 mm. No intrahepatic biliary distention. Remaining visualized liver and right kidney are sonographically unremarkable. Right kidney measures 11.8 x 7.2 x 4.7 cm. Impression: Nonvisualization pancreas. Cholelithiasis without cholecystitis/biliary distention.
[2025-08-12] MEDS: ENOXAPARIN SODIUM SQ SCH (13:21)
[2025-08-12] MEDS: Zestril 5 MG PO SCH (13:21)
[2025-08-12] MEDS: Coreg 3.125 MG PO SCH (13:21)
[2025-08-12 14:48] LABS: Glucose, Urine 100 mg/dL (Negative); Protein,Urine Dip Trace (Negative)
[2025-08-12] MEDS: ATIVAN 2 MG/ML MDV FOR SINGLE DOSES IV ONE ×2 (16:00→16:40)
--- NOTE | 2025-08-12 16:58 | XRAY ---
Indication: Confusion. Multiple contiguous axial images obtained without contrast. Comparison: Earlier today. Again age-appropriate global atrophy and minimal periventricular degenerative micro-ischemia bilaterally. No acute intracranial hemorrhage, abnormal extraction fluid collection, or mass effect. Fourth ventricle is midline without hydrocephalus. Bony calvarium intact. Visualized paranasal sinuses and mastoid air cells are clear. Impression: Stable nonacute senile brain.
[2025-08-12 17:05] LABS: A-aADO2 34; ABG HEMOGLOBIN 12.7; ABG POTASSIUM 3.6 (3.5-5.1); ABG SITE LEFT BRACHIAL; ARTERIAL BLD GAS O2 SATURATION 94.3 % (95-100); ARTERIAL BLOOD GAS BASE EXCESS 0.7 (-2.0-2.0); ARTERIAL BLOOD GAS FIO2 21 %; ARTERIAL BLOOD GAS PCO2 40 mmHg (35-45); ARTERIAL BLOOD GAS PO2 66 mmHg (75-100); ARTERIAL BLOOD GAS TEMPERATURE 37.0 C; HCO3- 25.4 (22-28); HGB O2 SAT 91.7 g/dF (94-100); Methhemoglobin 1.3 % (1.4-1.5); paO2 pAO1 0.66
[2025-08-12] MEDS ORDERED: Seroquel 25 MG PO PRN (18:27)
[2025-08-12] MEDS: FEVERALL 650 MG PR PRN (19:00)
[2025-08-12] MEDS: VANCOMYCIN 1 GRAM/200 ML BAG 1 GM/200 ML PIGGYBACK IV SCH (20:03)
[2025-08-12] MEDS: PHARMACY DOSING REQUIRED: VANCOMYCIN IV STA (20:48)
[2025-08-12] MEDS ORDERED: Maxipime 2 GM ONE (21:17)
[2025-08-12] MEDS: Maxipime 2 GM** 2 G in Sodium Chloride 0.9% 100 ML IV SCH (21:58)
[2025-08-12] MEDS: FLAGYL 500 MG IVPB 500 MG/100 ML BAG IV SCH (23:43)
[2025-08-13] MEDS ORDERED: FLAGYL 500 MG IVPB 500 MG/100 ML BAG IV SCH
[2025-08-13] MEDS ORDERED: Maxipime 2 GM ONE (03:23)
[2025-08-13 04:35] VITALS: PULSE 73
[2025-08-13 06:07] LABS: Hematocrit 38.3 % (40.1-51.0); Hemoglobin 13.1 g/dL (13.7-17.5); Mean Corpuscular Hemoglobin 29.2 pg (25.7-32.2); Mean Corpuscular Hgb Concent. 34.2 g/dL (32.3-36.5); Platelet Count 161 x10^3/uL (163-337); Red Blood Count 4.49 x10^6/uL (4.63-6.08); White Blood Count 6.6 x10^3/uL (4.23-9.07)
[2025-08-13 07:02] LABS: Calcium 8.2 mg/dL (8.4-10.2); Carbon Dioxide 25.0 mmol/L (22-30); Creatinine 1 0.61 mg/dL (0.66-1.25); EST GLOMERULAR FILTRATION RATE 100.8 ML/MIN; Glucose 200.0 mg/dL (74-106); Potassium 3.4 mmol/L (3.5-5.1)
[2025-08-13 09:02] LABS: A-aADO2 31; ABG HEMOGLOBIN 13.6; ABG POTASSIUM 3.2 (3.5-5.1); ABG SITE LEFT RADIAL; ALLEN TEST OK? YES; ARTERIAL BLD GAS O2 SATURATION 98.7 % (95-100); ARTERIAL BLOOD GAS BASE EXCESS -2.1 (-2.0-2.0); ARTERIAL BLOOD GAS FIO2 21 %; ARTERIAL BLOOD GAS PCO2 30 mmHg (35-45); ARTERIAL BLOOD GAS PO2 81 mmHg (75-100); ARTERIAL BLOOD GAS TEMPERATURE 37.0 C; HCO3- 20.9 (22-28); HGB O2 SAT 96.0 g/dF (94-100); Methhemoglobin 1.2 % (1.4-1.5); paO2 pAO1 0.72
[2025-08-13 09:14] VITALS: BP 163/75; RESP 20; TEMP 99.5; O2SAT 95
[2025-08-13] MEDS: POTASSIUM CHLORIDE 20 mEq IN WATER 100ML 20 MEQ/100 ML BAG IV ONE (09:29)
--- NOTE | 2025-08-13 10:37 | PCM.DS ---
Discharge Summary Date of Admission: 08/12/25 02:59 Date of Discharge: 08/13/25 Admitting Physician: RAYSA HORTON MD Consults: Consults on Case 08/12/25 10:18 Consult Neurology ROUTINE 08/12/25 11:22 Consult Surgery ROUTINE Primary Care Provider: JOVANNY LEAVITT MD Allergies Allergies No Known Drug Allergies Allergy (Verified 08/11/25 23:06) Hospital Summary - Hospital Course Hospital Course: Mr. Jin is a 75-year-old male with past medical history of type II diabetes, hypertension, and hernia who presented on 08/12/25 with several days of cough, post-tussive nausea and vomiting, markedly reduced oral intake, and progressive confusion. His spouse reported he developed flu-like symptoms four days prior, followed by fever to 100F and acute confusion with nonsensical speech on 08/11/25, prompting ED presentation. She denied focal neurological deficits such as facial droop, dysarthria, or weakness. On arrival, he was lethargic and oriented only to self. Examination revealed right upper quadrant tenderness without peritoneal signs. Initial laboratory studies showed normal liver function tests, negative urinalysis, and negative viral testing for COVID, influenza, and RSV. A mononucleosis screen was positive. CT head performed at presentation was unremarkable. Given ongoing abdominal pain and vomiting, CT abdomen/pelvis with contrast on 08/12/25 demonstrated a distended gallbladder with small gallstones impacted in the neck, mild diffuse colonic fecal stasis, and an incidental lytic lesion at L3 raising concern for osteolytic malignancy. Additional chronic findings included a hiatal hernia, diverticulosis, arteriosclerotic vascular disease, and fat-containing umbilical and inguinal hernias, none of which appeared acutely contributory. A right upper quadrant ultrasound further characterized the gallbladder, showing cholelithiasis without biliary obstruction or cholecystitis; the pancreas was not well visualized. Surgery was consulted and determined no operative intervention was indicated. Despite supportive management with IV fluids, antiemetics, and bowel regimen, the patient developed a temperature spike to 102F overnight. Antibiotics were escalated from piperacillin-tazobactam to broad-spectrum coverage with vancomycin, cefepime, and metronidazole. Repeat CT head again showed no acute intracranial abnormality. MRI brain and CT chest were attempted but not tolerated due to patients condition. Neurology consult pending at time of discharge. On 08/13/25, he remained febrile, lethargic, and profoundly confused, minimally responsive except to painful stimulation, without improvement despite antimicrobial therapy. Laboratory studies continued to show no leukocytosis and stable chemistries aside from mild hypokalemia/hyponatremia. Given the concern for severe encephalopathy of unclear etiology and need for neurology and infectious disease evaluation beyond the local facilitys capabilities, the patient is being transferred to [facility]. Accepting physician is Dr. Allen. I spent 45 minutes [id number] with the patient on the day of discharge performing discharge exam, discussing hospital stay and discharge instructions with patient and caregivers, preparation of discharge records, prescriptions & referral forms and addressing any questions/concerns the patient had as documented above. - Vitals & Intake/Output Vital Signs: Vital Signs Temperature 99.5 F 08/13/25 09:00 Pulse Rate 73 08/13/25 09:00 Respiratory Rate 20 08/13/25 09:00 Blood Pressure 163/75 08/13/25 09:00 O2 Sat by Pulse Oximetry 95 08/13/25 09:00 Intake & Output: Intake & Output 08/10/25 08/11/25 08/12/25 08/13/25 11:59 11:59 11:59 11:59 Intake Total 2668 Output Total 200 5150 Balance -200 -2482 Weight 88.6 kg - Lab Result Diagrams: 08/13/25 06:02 08/13/25 06:02 Lab Results-Last 24 Hrs: Lab Results-Last 24 Hours 08/12/25 08/12/25 08/12/25 Range/Units 14:36 15:28 15:28 WBC (4.23-9.07) x10^3/uL RBC (4.63-6.08) x10^6/uL Hgb (13.7-17.5) g/dL Hct (40.1-51.0) % MCV (79.0-92.2) fL MCH (25.7-32.2) pg MCHC (32.3-36.5) g/dL RDW (11.6-14.4) % Plt Count (163-337) x10^3/uL MPV (9.4-12.4) fL ESR 3 (0-15) mm/hr Puncture Site pCO2 (35-45) mmHg pO2 (75-100) mmHg Base Excess (-2.0-2.0) O2 Saturation (94-100) g/dF ABG pH (7.35-7.45) ABG HCO3 (22-28) ABG O2 Sat (Measured) (95-100) % David Test A-a Gradient a/A Ratio Hemoglobin Carboxyhemoglobin (0.0-6.9) % THgb Methemoglobin (1.4-1.5) % Potassium (3.5-5.1) Temperature C POC O2 Flow Rate % Sodium (135-145) mmol/L Chloride (98-107) mmol/L Carbon Dioxide (22-30) mmol/L Anion Gap (5-15) MEQ/L BUN (9-20) mg/dL Creatinine (0.66-1.25) mg/dL Estimated GFR ML/MIN Glucose (74-106) mg/dL POC Glucometer (74 to 106) mg/dL Calcium (8.4-10.2) mg/dL Procalcitonin 0.084 H (0.030-0.080) ng/mL Urine Color Yellow (Yellow) Urine Appearance Clear (Clear) Urine pH 6.0 (4.6-8.0) Ur Specific [place] >=1.030 A (1.005-1.030) Urine Protein Trace A (Negative) Urine Glucose (UA) 100 A (Negative) mg/dL Urine Ketones 40 A (Negative) Urine Blood Negative (Negative) Urine Nitrite Negative (Negative) Urine Bilirubin Negative (Negative) Urine Urobilinogen 1.0 A (0.2) mg/dL Ur Leukocyte Esterase Negative (Negative) U Hyaline Cast (Auto) NONE SEEN (0-2) /LPF Urine Microscopic RBC 6-10 A (0-5) /HPF Urine Microscopic WBC 3-5 (0-5) /HPF Ur Epithelial Cells None Seen (None Seen) /HPF Urine Bacteria Few A (None Seen) /HPF Urine Mucus Moderate A (NEGATIVE) /HPF Urine Culture Reflexed YES (NO) 08/12/25 08/12/25 08/13/25 Range/Units 17:00 21:33 06:02 WBC 6.6 (4.23-9.07) x10^3/uL RBC 4.49 L (4.63-6.08) x10^6/uL Hgb 13.1 L (13.7-17.5) g/dL Hct 38.3 L (40.1-51.0) % MCV 85.3 (79.0-92.2) fL MCH 29.2 (25.7-32.2) pg MCHC 34.2 (32.3-36.5) g/dL RDW 12.6 (11.6-14.4) % Plt Count 161 L (163-337) x10^3/uL MPV 10.2 (9.4-12.4) fL ESR (0-15) mm/hr Puncture Site LEFT BRACHIAL pCO2 40 (35-45) mmHg pO2 66 L (75-100) mmHg Base Excess 0.7 (-2.0-2.0) O2 Saturation 91.7 L (94-100) g/dF ABG pH 7.41 (7.35-7.45) ABG HCO3 25.4 (22-28) ABG O2 Sat (Measured) 94.3 L (95-100) % David Test NOT APPLICABLE A-a Gradient 34 a/A Ratio 0.66 Hemoglobin 12.7 Carboxyhemoglobin 1.5 (0.0-6.9) % THgb Methemoglobin 1.3 L (1.4-1.5) % Potassium 3.6 (3.5-5.1) Temperature 37.0 C POC O2 Flow Rate 21 % Sodium (135-145) mmol/L Chloride (98-107) mmol/L Carbon Dioxide (22-30) mmol/L Anion Gap (5-15) MEQ/L BUN (9-20) mg/dL Creatinine (0.66-1.25) mg/dL Estimated GFR ML/MIN Glucose (74-106) mg/dL POC Glucometer 141 H (74 to 106) mg/dL Calcium (8.4-10.2) mg/dL Procalcitonin (0.030-0.080) ng/mL Urine Color (Yellow) Urine Appearance (Clear) Urine pH (4.6-8.0) Ur Specific [place] (1.005-1.030) Urine Protein (Negative) Urine Glucose (UA) (Negative) mg/dL Urine Ketones (Negative) Urine Blood (Negative) Urine Nitrite (Negative) Urine Bilirubin (Negative) Urine Urobilinogen (0.2) mg/dL Ur Leukocyte Esterase (Negative) U Hyaline Cast (Auto) (0-2) /LPF Urine Microscopic RBC (0-5) /HPF Urine Microscopic WBC (0-5) /HPF Ur Epithelial Cells (None Seen) /HPF Urine Bacteria (None Seen) /HPF Urine Mucus (NEGATIVE) /HPF Urine Culture Reflexed (NO) 08/13/25 08/13/25 08/13/25 Range/Units 06:02 07:22 08:55 WBC (4.23-9.07) x10^3/uL RBC (4.63-6.08) x10^6/uL Hgb (13.7-17.5) g/dL Hct (40.1-51.0) % MCV (79.0-92.2) fL MCH (25.7-32.2) pg MCHC (32.3-36.5) g/dL RDW (11.6-14.4) % Plt Count (163-337) x10^3/uL MPV (9.4-12.4) fL ESR (0-15) mm/hr Puncture Site LEFT RADIAL pCO2 30 L (35-45) mmHg pO2 81 (75-100) mmHg Base Excess -2.1 L (-2.0-2.0) O2 Saturation 96.0 (94-100) g/dF ABG pH 7.45 (7.35-7.45) ABG HCO3 20.9 L (22-28) ABG O2 Sat (Measured) 98.7 (95-100) % David Test YES A-a Gradient 31 a/A Ratio 0.72 Hemoglobin 13.6 Carboxyhemoglobin 1.5 (0.0-6.9) % THgb Methemoglobin 1.2 L (1.4-1.5) % Potassium 3.4 L 3.2 L (3.5-5.1) Temperature 37.0 C POC O2 Flow Rate 21 % Sodium 132 L (135-145) mmol/L Chloride 96 L (98-107) mmol/L Carbon Dioxide 25 (22-30) mmol/L Anion Gap 14.0 (5-15) MEQ/L BUN 17 (9-20) mg/dL Creatinine 0.61 L (0.66-1.25) mg/dL Estimated GFR 100.8 ML/MIN Glucose 200 H (74-106) mg/dL POC Glucometer 187 H (74 to 106) mg/dL Calcium 8.2 L (8.4-10.2) mg/dL Procalcitonin (0.030-0.080) ng/mL Urine Color (Yellow) Urine Appearance (Clear) Urine pH (4.6-8.0) Ur Specific [place] (1.005-1.030) Urine Protein (Negative) Urine Glucose (UA) (Negative) mg/dL Urine Ketones (Negative) Urine Blood (Negative) Urine Nitrite (Negative) Urine Bilirubin (Negative) Urine Urobilinogen (0.2) mg/dL Ur Leukocyte Esterase (Negative) U Hyaline Cast (Auto) (0-2) /LPF Urine Microscopic RBC (0-5) /HPF Urine Microscopic WBC (0-5) /HPF Ur Epithelial Cells (None Seen) /HPF Urine Bacteria (None Seen) /HPF Urine Mucus (NEGATIVE) /HPF Urine Culture Reflexed (NO) Micro Results-Entire Visit: Microbiology 08/12/25 14:36 Urine Culture - Preliminary Catherized GRAM POSITIVE ID AND SENSITIVITY PENDING 08/11/25 23:52 Blood Culture - Preliminary Blood 08/11/25 23:52 Blood Culture - Preliminary Blood Accuchecks Date 08/13/25 Date 08/12/25 Date 08/12/25 Time 15:35 Time 11:29 - Radiology Exams Ordered Rad Exams-Entire Visit: Radiology Procedures Category Date Time Status ABDOMEN AND PELVIS W CONTRAST [CT] Urgent Exams 08/12/25 08:34 Completed BONE WHOLE BODY [NUCMED] Routine Exams 08/15/25 11:30 Ordered CHEST WITH CONTRAST [CT] Routine Exams 08/13/25 11:00 Ordered GALLBLADDER [US] Stat Exams 08/12/25 11:12 Completed HEAD WITHOUT CONTRAST [CT] Urgent Exams 08/12/25 15:16 Completed - Procedures and Test Procedures and Tests throughout Hospitalization: Therapy Orders & Screens 08/12/25 04:24 PT Eval & Treat ( Order) ONCE Reason for Eval:: Gen weakness Diagnosis: Mononucleosis 08/12/25 19:21 Oxygen Nasal Cannula 2 lpm Comment: Diagnosis: Mononucleosis Discharge Exam General Appearance: moderate distress, thin Neurologic Exam: disoriented, confusion Neck Exam: normal inspection Respiratory Exam: normal breath sounds, lungs clear Cardiovascular Exam: regular rate/rhythm, normal heart sounds Gastrointestinal/Abdomen Exam: soft, normal bowel sounds Male Genitalia Exam: deferred Rectal Exam: deferred Back Exam: normal inspection Extremity Exam: normal inspection Skin Exam: pale Final Diagnosis/Problem List - Final Discharge Diagnosis/Problem (1) Acute encephalopathy Current Visit: Yes Status: Acute Assessment & Plan: Profound lethargy, confusion, minimally responsive to questioning. CT head x2 negative; MRI brain not tolerated. Labs without leukocytosis or metabolic derangements beyond mild hyponatremia. Likely multifactorial with infectious, metabolic, and [employer] causes considered. Code(s): G93.40 - ENCEPHALOPATHY, UNSPECIFIED (2) Mononucleosis Current Visit: Yes Status: Acute Assessment & Plan: Mononucleosis screen returned positive, consistent with acute EBV infection. LFTs remain within normal range, making EBV-associated hepatitis less likely at present. VFever, malaise, cough, and post-tussive emesis preceding encephalopathy. The degree of altered mental status is atypical for uncomplicated mono. Considerations: EBV hepatitis can cause transaminitis; not present here but should be trended. EBV-associated encephalitis a rare but recognized complication, and given his acute encephalopathy, this remains on the differential. Secondary bacterial infection EBV likely contributes to his systemic illness, but severity of encephalopathy and persistent fever suggest an atypical course or superimposed pathology, necessitating neurology and ID evaluation. Code(s): B27.90 - INFECTIOUS MONONUCLEOSIS, UNSPECIFIED WITHOUT COMPLICATION (3) Fever, unknown origin Current Visit: Yes Status: Acute Assessment & Plan: Fever to 102F, worsening mental status. No clear pneumonia on imaging; abdomen notable for gallbladder pathology. Broad-spectrum antibiotics escalated (vancomycin/cefepime/metronidazole). Interpretation: Clinical concern for occult bacterial or [employer] source despite negative initial workup. (4) Nausea & vomiting Current Visit: Yes Status: Acute Assessment & Plan: Likely multifactorial: viral syndrome, gallbladder disease, systemic illness. CT abdomen: gallstones impacted in neck, fecal stasis. Managed with IV fluids and ondansetron. Code(s): R11.2 - NAUSEA WITH VOMITING, UNSPECIFIED (5) Cholelithiasis Current Visit: Yes Status: Acute Assessment & Plan: RUQ ultrasound: cholelithiasis without biliary distention or cholecystitis. Surgery: No operative intervention required. (6) Abnormal finding on imaging Current Visit: Yes Status: Acute Assessment & Plan: CT abdomen/pelvis: lytic lesion at L3. Pending bone scan; SPEP with immunofixation and serum free light chains ordered. Outpatient oncology referral arranged; CT chest to be obtained when feasible. Code(s): R93.89 - ABNORMAL FINDINGS ON DX IMAGING OF OTH BODY STRUCTURES (7) Fecal impaction of colon Current Visit: Yes Status: Acute Assessment & Plan: CT abdomen: diffuse fecal stasis. Managed with bowel regimen. Code(s): K56.41 - FECAL IMPACTION (8) DMII (diabetes mellitus, type 2) Current Visit: Yes Status: Acute Assessment & Plan: managed with insulin sliding scale and glucose checks. (9) HTN (hypertension) Current Visit: Yes Status: Acute Assessment & Plan: resumed home regimen as tolerated. Code(s): I10 - ESSENTIAL (PRIMARY) HYPERTENSION (10) Hiatal hernia Current Visit: Yes Status: Acute Assessment & Plan: stable, non-contributory. Code(s): K44.9 - DIAPHRAGMATIC HERNIA WITHOUT OBSTRUCTION OR GANGRENE - Discharge Disposition: Home, Self-Care Condition: Fair Prescriptions: No Action Lisinopril 5 mg [Zestril 5 MG] 2.5 mg PO DAILY ondansetron HCL [Ondansetron HCl] 8 mg PO BID PRN Metformin HCl 500 mg [Glucophage 500 MG] 1,000 mg PO BID Insulin Lispro [Insulin Lispro Kwikpen U-100] 5 unit SQ TID Carvedilol 3.125 mg [Coreg 3.125 MG] 3.125 mg PO BID Insulin Degludec [Tresiba Flextouch U-100] 10 unit SQ HS Follow up with: TANIA DUNLAP MD [NON-STAFF PHY W/O PRIVILEGES, HEMATOLOGY] - 08/17/25 2:00 pm KONRAD RUBIO MD [ACTIVE STAFF, GENERAL SURGERY] Forms: Ambulance Transport Record, Transfer Record Inter-Agency
--- NOTE | 2025-08-13 10:46 | PCM.DCORD ---
- Discharge Discharge Date: 08/13/25 ([place]) Disposition: DC TO OTHER HOSP Condition: Fair Prescriptions: New Enoxaparin Sodium [Enoxaparin Sodium] 40 mg SQ DAILY Acetaminophen 650 mg [Feverall 650 mg] 650 mg [place] Q4H PRN PRN supp PRN Reason: Pain And/Or Fever Metronidazole 500 mg Premix [Flagyl 500 mg Ivpb] 500 mg IV Q6HT Cefepime HCl 2 gm [Maxipime 2 GM] 2 g IV Q8HT Acetaminophen 325 mg [Tylenol 325 mg] 650 mg PO Q4H PRN PRN tablet PRN Reason: Pain, Fever, Headache Vancomycin/Water For Inj (Peg) [Vancomycin 1.25 gm/250 ml Bag] 1.25 gm IV Q12H iv piggy Ondansetron HCl 4 mg/2 ml [Zofran 4 MG/2 ML VIAL] 4 mg IV Q6H PRN PRN PRN Reason: Nausea/Vomiting Continue Lisinopril 5 mg [Zestril 5 MG] 2.5 mg PO DAILY Carvedilol 3.125 mg [Coreg 3.125 MG] 3.125 mg PO BID Insulin Degludec [Tresiba Flextouch U-100] 10 unit SQ HS Discontinued ondansetron HCL [Ondansetron HCl] 8 mg PO BID PRN Metformin HCl 500 mg [Glucophage 500 MG] 1,000 mg PO BID Insulin Lispro [Insulin Lispro Kwikpen U-100] 5 unit SQ TID Follow up with: TANIA DUNLAP MD [NON-STAFF PHY W/O PRIVILEGES, HEMATOLOGY] - 08/17/25 2:00 pm KONRAD RUBIO MD [ACTIVE STAFF, GENERAL SURGERY] Forms: Ambulance Transport Record, Transfer Record Inter-Agency
[2025-08-13] MEDS ORDERED: VANCOMYCIN 1.25 GM/250 ML BAG 1.25 GM/250 ML PIGGYBACK IV SCH (17:00)
--- NOTE | 2025-08-15 07:39 | CONS ---
CHIEF COMPLAINT: Fatigue. CONSULTING PROVIDER: Hospitalist. REASON FOR CONSULTATION: Gallstones, possible cholecystitis. HISTORY OF PRESENT ILLNESS: The patient presents with at least a week of not feeling well, fever, cough, nausea, vomiting, generalized malaise, and most of the history is obtained from his family as the patient is lethargic and not very talkative. She says that he has gotten really lethargic the past couple of days but that he has not really ever complained of any abdominal pain, and he denies any prior episodes of right upper quadrant pain after eating or any current abdominal pain. PAST MEDICAL HISTORY: Diabetes and hypertension. PAST SURGICAL HISTORY: None. MEDICATIONS: Reviewed. See MAR. ALLERGIES: Reviewed. See MAR. FAMILY HISTORY: Noncontributory. SOCIAL HISTORY: Noncontributory. PHYSICAL EXAMINATION: GENERAL: Resting comfortably in bed with a cough. HEENT: Sclerae anicteric. Extraocular motions are intact. NECK: Supple. No JVD. CHEST: Nonlabored breathing with cough. ABDOMEN: Soft, nondistended. There is a moderate umbilical hernia that is chronically incarcerated, soft and nontender. His right upper quadrant is nontender. EXTREMITIES: No peripheral edema. ASSESSMENT AND PLAN: Cholelithiasis. CT scan report reviewed which shows gallstones and a distended gallbladder, cannot rule out acute cholecystitis. Reviewed CBC, CMP, H and P. Ultrasound reviewed and it shows gallstone including a large gallstone about 2 cm, but no gallbladder wall thickening or pericholecystic fluid. I think these are incidental gallstones. I do not think he is having any acute cholecystitis and does not seem like he has any prior episodes of biliary colic. No emergent surgery needed at this time. Please call us back if symptoms change and are more concerning for cholecystitis. Otherwise, the patient can follow up with us electively if he has any biliary colic-like symptoms or wants to have his umbilical hernia repaired.
[2025-08-16 13:11] LABS: Albumin 4.0 g/dL (2.9-4.4); Alpha-1-Globulin 0.2 g/dL (0.0-0.4); Alpha-2-Globulin 0.8 g/dL (0.4-1.0); Free Kappa Lt Chains,S 108.3 mg/L (3.3-19.4); Free Lambda Lt Chains,S 8.8 mg/L (5.7-26.3); Gamma Globulin 1.4 g/dL (0.4-1.8); Immunoglobulin A, Qn, Serum 140 mg/dL (61-437)
[2025-08-16 13:34] LABS: Kappa/Lambda Ratio,S 12.31 (0.26-1.65)
== END 2025-08-13 12:30 ==
LOC: ED 23:00 → MED SURG 08-12 02:59
PROVIDERS: ADMIT Internal Medicine; ATTEND Internal Medicine
DX: G93.40 Encephalopathy, unspecified (principal); B27.90 Infectious mononucleosis, unspecified without complication; R50.9 Fever, unspecified; R11.2 Nausea with vomiting, unspecified; K80.20 Calculus of gallbladder without cholecystitis without obstruction; R93.89 Abnormal findings on diagnostic imaging of other specified body structures; K56.41 Fecal impaction; E11.9 Type 2 diabetes mellitus without complications; I10 Essential (primary) hypertension; K44.9 Diaphragmatic hernia without obstruction or gangrene; Z79.899 Other long term (current) drug therapy
CPT/HCPCS: 36415; 36600; 70450; 71045; 74177; 76705; 80048; 80053; 81001; 82140; 82150; 82375; 82607; 82746; 82784; 82803; 82947; 83521; 83605; 83690; 83735; 83880; 84145; 84165; 84443; 84484; 85025; 85027; 85652; 86140; 86308; 87040; 87077; 87086; 87186; 87637; 87651; 93005; 93041; 93268; 94760; 96360; 96375; 99285; G0378; P9612; Q3014